=== PATIENT | female | born 1980 | race Caucasian/White ===

== ENCOUNTER → 2019-05-02 | Outpatient (CLI) | payer BC, OTHER ==
[~2019-05-02] MED LIST: ASPIR 8181 MG PO; ASPIRIN81 M2 PO; COUMADIN 5 MG TA5 M1 PO; COZAAR 25 MG TA25 M1 PO; DIGOXIN125 MCG PO; FUROSEMIDE40 MG/4 ML IV; KEFLEX500 M1 PO; KLOR-CON 1010 MEQ PO; PENICILLIN VK250 MG PO; PROTONIX40 M1 PO; SPIRONOLACTONE25 M1 PO; TOPROL XL25 MG PO; TORSEMIDE100 MG PO; VENOFER20 MG/ML IV
[2019-05-02 09:10] VITALS: BP 87/13
[2019-05-02 10:52] VITALS: BP 85/35
[2019-05-02 11:00] VITALS: BP 85/35
--- NOTE | 2019-05-02 11:00 | NUR ---
HERE FOR 1ST OF 5 IV IRON SUCROSE INFUSIONS ORDERED BY [place] PHYSICIAN WITH THE [facility] TRANSPLANT TEAM FOR HER IRON DEFICIENCY ANEMIA. HGB REPORTEDLY DROPPED FROM 10 TO 7.4. 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 REPORTS PROGRESSIVE FATIGUE, LOW ENERGY, OCCASIONAL DIZZINESS, DYSPNEA ON EXERTION (HAS EJECTION FRACTION OF 16%). BP LOW UPON ARRIVAL WITH SYSTOLIC 87. PT STATES SHE IS WORKING WITH HER ELECTRICAL CHECKOUT MECHANIC ON ADJUSTING BP MEDS AND THIS IS A NORMAL BP FOR HER. REVIEWED PLAN AND EDUCATION ON IRON INFUSIONS. PT VERBALIZES GOOD UNDERSTANDING. VENOFER 100MG INFUSED OVER ABOUT 1 HOUR TODAY. PT TOLERATED WELL WITH NO S/S REACTION. BP REMAINS LOW, NO CHANGE. REPORTS FEELING WELL AFTER. DISMISSED IN STABLE CONDITION. SCHEDULED TO RETURN IN ONE WEEK.
== END ==
LOC: OPONC 08:50
DX: D50.9 Iron deficiency anemia, unspecified (principal); I50.22 Chronic systolic (congestive) heart failure; Z76.82 Awaiting organ transplant status
CPT/HCPCS: 95000

== ENCOUNTER → 2019-05-09 | Outpatient (CLI) | payer BC, OTHER ==
[2019-05-09 08:15] VITALS: BP 88/29
[2019-05-09 08:50] LABS: ABSOLUTE NEUTROPHILS 2.5 thou/uL (1.4-8.2); BASOPHILS 0.7 % (0.0-2.0); EOSINOPHILS 1.9 % (0.0-3.0); HEMATOCRIT 23.3 % (37.0-47.0); HEMOGLOBIN 7.4 gm/dL (12.0-15.0); LYMPHOCYTES 19.2 % (24.0-44.0); MCH 23.9 pg (26.0-34.0); MCHC 31.7 g/dL (28.0-37.0); MCV 75.3 fL (80.0-100.0); POLYS 66.2 % (36.0-66.0); RBC 3.09 mil/uL (4.20-5.00); RDW 17.6 % (10.5-14.5); WBC 3.8 thou/uL (4.0-11.0)
[2019-05-09 09:04] LABS: ALBUMIN 4.6 g/dL (3.4-5.0); CALCIUM 9.3 mg/dL (8.5-10.1); CREATININE 1.2 mg/dL (0.6-1.0); POTASSIUM 3.9 mmol/L (3.5-5.1); TOTAL BILIRUBIN 0.9 mg/dL (<0.1-1.0); TOTAL PROTEIN 8.2 g/dL (6.4-8.2)
[2019-05-09 09:45] VITALS: BP 89/21
[2019-05-09 09:57] LABS: ANISOCYTOSIS 1+; HYPOCHROMASIA 1+
--- NOTE | 2019-05-09 09:57 | NUR ---
IN FOR 2ND OF 5 WEEKLY VENOFER INFUSIONS. PATIENT STATED FEELING VERY TIRED. DENIED PAIN. BP RUNNING LOW AT 88/29. PATIENT STATED THIS IS HER NORMAL BP EXCEPT THE DIASTOLIC IS USUALLY IN THE 40'S. DENIED DIZZINESS. INFUSED VENOFER OVER ONE HOUR WITHOUT INCIDENT. POST BP STABLE. OBSERVED FOR 15 MINUTES AND THEN DISMISSED IN STABLE CONDITION.
[2019-05-09 09:58] LABS: MICROCYTES 1+; OVALOCYTES FEW; SCHISTOCYTES RARE
[2019-05-09 10:45] LABS: PLATELET COUNT 228 thou/uL (150-400)
== END ==
LOC: OPONC 01:29
DX: D50.9 Iron deficiency anemia, unspecified (principal); I50.22 Chronic systolic (congestive) heart failure; Z76.82 Awaiting organ transplant status
CPT/HCPCS: 95000

== ENCOUNTER → 2019-05-16 | Outpatient (CLI) | payer BC, OTHER ==
[2019-05-16 09:05] VITALS: BP 83/24
[2019-05-16 10:55] VITALS: BP 88/22
--- NOTE | 2019-05-16 11:05 | NUR ---
HERE FOR 3RD OF 5 IRON INFUSIONS FOR IRON DEFICIENCY ANEMIA, HGB IN THE 7 RANGE. STATES HAS TOLERATED THE OTHERS WITH NO NOTED ADVERSE REACTION. TODAY'S RUN OVER AN HOUR BEFORE AND PT TOLERATED WITHOUT INCIDENT, NO S/S REACTION. HER PHYSICIAN DISCONTINUED THE IVP LASIX POST INFUSION. PT STATES IT DID NOT HAVE AN IMPACT ON HER. SHE IS STILL TAKING HER TORSEMIDE. DISMISSED POST INFUSION IN STABLE CONDITION. SCHEDULED TO RETURN AGAIN IN ONE WEEK.
== END ==
LOC: OPONC 09:05
DX: D50.9 Iron deficiency anemia, unspecified (principal); I50.22 Chronic systolic (congestive) heart failure
CPT/HCPCS: 95000

== ENCOUNTER → 2019-05-23 | Outpatient (CLI) | payer BC, OTHER ==
[2019-05-23 09:05] VITALS: BP 87/39
[2019-05-23 10:33] VITALS: BP 88/37
--- NOTE | 2019-05-23 11:06 | NUR ---
IN FOR #4 OF 5 WEEKLY VENOFER INFUSIONS FOR IRON DEFICIENCY ANEMIA. STATED FEELING WELL TODAY. HAS CHRONIC FATIGUE DUE TO HEART FAILURE. PATIENT IS ON THE HEART TRANSPLANT LIST. INFUSED VENOFER OVER 1 HOUR AND TOLERATED WELL WITHOUT INCIDENT. POST BP STABLE. PATIENT RUNS A LOW BP ALL THE TIME. REMOVED IV AND AND DISMISSED IN STABLE CONDITION. TO RETURN NEXT MONDAY FOR FINAL INFUSION.
== END ==
LOC: OPONC 00:36
DX: D50.9 Iron deficiency anemia, unspecified (principal); I50.22 Chronic systolic (congestive) heart failure; Z76.82 Awaiting organ transplant status
CPT/HCPCS: 95000